=== PATIENT | female | born 1965 | race Caucasian/White ===

== ENCOUNTER 2016-08-19 12:54 | Emergency (ER) | payer BC ==
[2016-08-19 15:04] VITALS: BP 140/77
--- NOTE | 2016-08-19 17:56 | UC ---
Hip/Pelvis Pain - HPI Summary HPI Summary: The patient comes in today for: 1. Left hip pain: Onset: 6 weeks ago, but worse over the last 2 weeks. Palliative/provocative: Straightening up, Getting up after sitting, sitting and neck flexion, left hip rotation. Quality: sharp. Region: Left hip and radiates down the leg. Severity: 1/10 with standing and the left hip flexion: 8/10 Time: constant. Associated symptoms: Bowel/bladder incontinence: None. Fevers/infections: None. Cancers/unexpected weight loss: None. Weakness/numbness: None. Previous disease: None of the lower back/hip/ Treatment: No medications. She was told by her CAD DETAILER 3 weeks ago that the pain my be related to her hysterectomy and thought it would get better. * - History Of Current Complaint Chief Complaint: UCLowerExtremity Stated Complaint: HIP PAIN Time Seen by Provider: 08/19/16 17:47 Hx Obtained From: Patient Hx Last Menstrual Period: uterine ablasion - 11/2011 ?: No - Allergies/Home Medications Allergies/Adverse Reactions: Allergies Allergy/AdvReac Type Severity Reaction Status Date / Time Erythromycin Allergy Hives Verified 08/19/16 13:39 Codeine AdvReac headache, Verified 08/19/16 13:39 vomiting PMH/Surg Hx/FS Hx/Imm Hx Previously Healthy: No - Cervical radiculopathy, "Bladder problems." Endocrine History Of: Denies: Diabetes, Thyroid Disease, Hyperthyroidism, Hypothyroidism, Dyslipidemia Cardiovascular History Of: Denies: Cardiac Disorders, Hypertension, Pacemaker/ICD, Myocardial Infarction , Congestive Heart Failure, Atrial Fibrillation, Deep Vein Thrombosis, Bleeding Disorders Respiratory History Of: Reports: Asthma Denies: COPD, Bronchitis, Pneumonia, Pulmonary Embolism GI/ History Of: Denies: Gastroesophageal Reflux, Ulcer, Gastrointestinal Bleed, Gall Bladder Disease, Kidney Stones, Diverticulitis, Renal Disease, Urosepsis Neurological History Of: Denies: TIA, CVA, Dementia, Seizures, Migraine Psychological History Of: Denies: Anxiety, Depression, Bipolar Disorder, Schizophrenia, Post Traumatic Stress Disorder Cancer History Of: Denies: Lung Cancer, Colorectal Cancer, Breast Cancer, Prostate Cancer, Cervical Cancer Other History Of: Negative For: HIV, Hepatitis B, Hepatitis C, Anticoagulant Therapy - Surgical History Surgical History: Yes Surgery Procedure, Year, and Place: uterine ablasion 18 mo ago;growth removed from uterus 6 months before ablasion;tubal ligation; APPENDECTOMY; SINUS SURGERY - Family History Known Family History: Positive: Hypertension Negative: Cardiac Disease - Social History Occupation: Employed Full-time Alcohol Use: Occasionally Substance Use Type: None Smoking Status (MU): Light Every Day Tobacco Smoker Type: Cigarettes Amount Used/How Often: 1/2 ppd - Immunization History Most Recent Influenza Vaccination: 2010 Most Recent Tetanus Shot: up to date Most Recent Pneumonia Vaccination: never Review of Systems Constitutional: Negative Skin: Negative Eyes: Negative ENT: Negative Respiratory: Negative Cardiovascular: Negative Gastrointestinal: Negative Genitourinary: Negative Musculoskeletal: Arthralgia, Myalgia All Other Systems Reviewed And Are Negative: Yes Physical Exam Triage Information Reviewed: Yes Appearance: Well-Appearing, No Pain Distress - The patient was standing the whole history taking next to the examination table. She complained at that time of minimal pain. However, maneuvering to get on the examination table was more difficult due to pain., Well-Nourished Vital Signs: Initial Vital Signs Temp 98.7 F 08/19/16 13:34 Pulse 113 08/19/16 13:34 Resp 20 08/19/16 13:34 BP 155/102 08/19/16 13:34 Pulse Ox 97 08/19/16 13:34 Vital Signs Reviewed: Yes Eyes: Positive: Conjunctiva Clear. Negative: Discharge ENT: Positive: Hearing grossly normal. Negative: Pharyngeal erythema, Nasal congestion, Nasal drainage, TM bulging, TM dull, TM red, Tonsillar swelling, Tonsillar exudate Dental: Negative: Gross Decay/Caries @, Dental Fracture @ Neck: Positive: Supple, Nontender, No Lymphadenopathy. Negative: Nuchal Rigidity Respiratory: Positive: Lungs clear, No respiratory distress. Negative: Crackles , Wheezing Cardiovascular: Positive: RRR, No Murmur Abdomen Description: Positive: Nontender, No Organomegaly, Soft. Negative: Distended, Guarding Musculoskeletal: Positive: Strength Intact, No Edema, Other: - Back: The spine revealed no marked kyphoscoliosis. There was no tenderness to the lumbar paraspinous musculature bilaterally. There was no CVA tenderness bilaterally. There was pain in the Left hip when I palpated her Right gluteus melvi. There was no piriformis tenderness of either buttocks. She had no marked tenderness of the left greater trochanteric bursa or ilio-tibial band. There was no tenderness to the posterior left hip capsule or the superior hamstring musculature on the left. Internal rotation was not associated with pain, but external rotation was. No SLR bilaterally. She had patella DTR 2+/2 x 2. Neurological: Positive: Alert Psychological: Positive: Age Appropriate Behavior, Consolable Skin: Negative: rashes, breakdown Diagnostics - Radiology No standard instances Xray Interpretation: No Acute Changes Radiology Interpretation Completed By: Radiologist Hip Injury Course/Dx - Course Course Of Treatment: Patient was told of the unremarkable Left hip x-rays. She was told that I did not know for sure what was causing her discomfort and therefore recommended that she see a specialist (orthopedics). She agreed. She was told of her treatment options, and she did not want muscle relaxants as they make her muscles "jump all over." She did agree to taking another NSAID ( other than ibuprofen). - Differential Dx/Diagnosis Provider Diagnoses: Left hip pain, etiology undetermined. Discharge - Discharge Plan Condition: Stable Disposition: HOME Patient Education Materials: Hip Pain (ED) Referrals: Jose Reeves MD [Primary Care Provider] - 1 Week (Please see your primary care provider after several days to see how well you are doing. If you get worse, please be seen sooner.) Laurie Burgess MD [Medical Doctor] - As Soon As Possible (Please call Dr. Burgess's office as soon as you can for an appointment. If your hip pain gets worse, please go to the ER.)
--- NOTE | 2016-08-19 18:33 | RAD ---
HISTORY: Left hip pain COMPARISONS: None VIEWS: 3, Frontal view of the pelvis with frontal and frog-leg views of the left hip FINDINGS: BONE DENSITY: Normal. BONES: There is no displaced fracture. 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 ALIGNMENT: There is no dislocation. SOFT TISSUES: Unremarkable. OTHER FINDINGS: None. IMPRESSION: NO ACUTE OSSEOUS INJURY. IF SYMPTOMS PERSIST, RECOMMEND REPEAT IMAGING.
== END 2016-08-19 19:09 | disposition home or self-care (01) ==
LOC: UCEAST 12:54
DX: M25.552 Pain in left hip (principal); Z88.1 Allergy status to other antibiotic agents; Z88.5 Allergy status to narcotic agent; F17.210 Nicotine dependence, cigarettes, uncomplicated
CPT/HCPCS: 99212; G0463

== ENCOUNTER 2016-10-14 11:39 | Inpatient (IN) | payer BC ==
[2016-10-14] MEDS ORDERED: LORazepam INJ* 2 MG/ML 1 ML VIAL IV PUSH ONE (12:38)
[2016-10-14] MEDS ORDERED: HYDROmorphone* 1 MG/ML 1 ML SYR IV ONE ×2 (12:38→13:12)
[2016-10-14] MEDS ORDERED: NS 0.9% 1000 ML* 2,000 ML IV ONE (12:38)
[2016-10-14] MEDS ORDERED: Ketorolac INJ* 30 MG/ML 1 ML VIAL IV ONE (13:12)
[2016-10-14 13:25] LABS: Hematocrit 43 % (35-47); Hemoglobin 14.4 g/dl (12.0-16.0); Mean Corpuscular HGB Conc 34 g/dl (31-36); Mean Corpuscular Hemoglobin 31 pg (27-31); Mean Corpuscular Volume 92 fL (80-97); Mean Platelet Volume 9 um3 (7.4-10.4); Red Cell Distribution Width 14 % (10.5-15); White Blood Count 8.5 10^3/ul (3.5-10.8)
[2016-10-14 13:40] LABS: ALT 23 U/L (7-52); AST 18 U/L (13-39); Albumin 4.5 g/dL (3.2-5.2); Alkaline Phosphatase 55 U/L (34-104); Anion Gap 7 mmol/L (2-11); BUN/Creatinine Ratio 20.3 (8-20); Blood Urea Nitrogen 13 mg/dL (6-24); C Reactive Protein < 1.00 mg/L (< 5.00); CO2 Carbon Dioxide 23 mmol/L (22-32); Calcium 10.1 mg/dL (8.6-10.3); Chloride 108 mmol/L (101-111); EGFR African American 125.3 (>60); EGFR Non-African American 97.4 (>60); Globulin 2.7 g/dL (2-4); Glucose 91 mg/dL (70-100); Magnesium 1.9 mg/dL (1.9-2.7); Potassium 3.7 mmol/L (3.5-5.0); Sodium 138 mmol/L (133-145); Total Protein 7.2 g/dL (6.4-8.9)
--- NOTE | 2016-10-14 13:53 | ED ---
Geoff Menard Rebecca, scribed for Shelli Cain MD on 10/14/16 at 1215 . Back Pain - HPI Summary HPI Summary: Pt is a 51 y/o F who presents to ED c/o acute on chronic lumbar back pain. Pain began gradually 7 weeks ago and has been constant and worsening since onset, worsened 1 week ago. Pt reports "L2 is herniated to the right." Pain is in the lumbar back with radiation down the entire LLE. Pain is characterized as severe sharp and burning pain, ranked 10/10. Sx aggravated by movement and deep breaths , alleviated by nothing, unchanged by Ultram, Vicodin and Morphine. Additionally c/o decreased appetite, fever and chills. Prior similar episodes were unchanged by Dilaudid and Fentanyl IV. Pt is unsure of whether Benzodiazepine has been used to treat sx previously. Pt was scheduled for surgery to treat sx on October [address] Pascual, which her insurance company rejected on October 02, per pt. Reports Dr. Pascual's plan was then to treat her with physical therapy, which has also been denied by insurance. - History of Current Complaint Chief Complaint: EDBackInjuryPain Stated Complaint: PAIN BACK , AND LEG Time Seen by Provider: 10/14/16 12:14 Hx Obtained From: Patient Hx Last Menstrual Period: uterine ablasion - 11/2011 Onset/Duration: Gradual Onset, Lasting Weeks - 7 weeks, Still Present, Worse Since - 1 week ago Timing: Constant Back Pain Location: Is Discrete @ - Lumbar back, Radiates To - LLE Severity Initially: Severe Severity Currently: Severe Pain Intensity: 10 Pain Scale Used: 0-10 Numeric Character: Sharp, Burning Aggravating Symptom(s): Movement Alleviating Symptom(s): Nothing Associated Signs And Symptoms: Positive: Fever, Other - Chills, decreased appetite - Allergies/Home Medications Allergies/Adverse Reactions: Allergies Allergy/AdvReac Type Severity Reaction Status Date / Time Erythromycin Allergy Hives Verified 10/02/16 10:33 Codeine AdvReac Severe headache, Verified 10/02/16 10:33 vomiting Home Medications: Home Medications Cetirizine-Pseudoephedrine [Zyrtec-D Allergy/Congesti] 1 tab PO DAILY PRN [History Confirmed 10/14/16] Cyclobenzaprine TAB* [Flexeril 10 MG TAB*] 10 mg PO BEDTIME 10/14/16 [History Confirmed 10/14/16] Hydrocodone-Acetaminophen [Hydrocodone Bitartrate/AC] 1 tab PO Q6HR MDD 4 tabs 10/14/16 [History Confirmed 10/14/16] Morphine TAB (NF) 15 mg PO Q4HR MDD 90mg 10/14/16 [History Confirmed 10/14/16] Solifenacin(NF) [Vesicare(NF)] 5 mg PO DAILY 10/14/16 [History Confirmed ] PMH/Surg Hx/FS Hx/Imm Hx Endocrine/Hematology History: Denies: Hx Anticoagulant Therapy, Hx Diabetes, Hx Thyroid Disease Cardiovascular History: Denies: Hx Congestive Heart Failure, Hx Deep Vein Thrombosis, Hx Hypertension , Hx Myocardial Infarction, Hx Pacemaker/ICD Respiratory History: Reports: Hx Asthma Denies: Hx Chronic Obstructive Pulmonary Disease (COPD), Hx Lung Cancer, Hx Pneumonia, Hx Pulmonary Embolism GI History: Reports: Other GI Disorders - hx of diverticulitis Denies: Hx Gall Bladder Disease, Hx Gastrointestinal Bleed, Hx Ulcer, Hx Urosepsis History: Denies: Hx Dialysis, Hx Kidney Stones, Hx Renal Disease Musculoskeletal History: Reports: Hx Arthritis, Hx Back Problems Sensory History: Denies: Hx Hearing Aid Neurological History: Reports: Other Neuro Impairments/Disorders - States numb/ tingling right arm with weakness Denies: Hx Dementia, Hx Migraine, Hx Seizures, Hx Transient Ischemic Attacks (TIA) Psychiatric History: Denies: Hx Anxiety, Hx Depression, Hx Panic Disorder, Hx Schizophrenia, Hx Bipolar Disorder - Cancer History Hx Chemotherapy: No Hx Radiation Therapy: No - Surgical History Surgery Procedure, Year, and Place: uterine ablasion; growth removed from uterus 6 months before ablasion; tubal ligation 1985; APPENDECTOMY 2014; SINUS SURGERY 1995. HYSTERECTOMY May 2016 Infectious Disease History: Denies: Hx Clostridium Difficile, Hx Hepatitis, Hx Human Immunodeficiency Virus (HIV), Hx of Known/Suspected MRSA, Hx Shingles, Hx Tuberculosis, Traveled Outside the [place] in Last 30 Days - Family History Known Family History: Positive: Hypertension Negative: Cardiac Disease - Social History Lives: With Family Alcohol Use: Rare Substance Use Type: Reports: None Smoking Status (MU): Light Every Day Tobacco Smoker Type: Cigarettes Amount Used/How Often: 1/2 ppd Review of Systems Positive: Fever, Chills Positive: Other - Decreased appetite Positive: Arthralgia - Lumbar back pain with radiation to the LLE All Other Systems Reviewed And Are Negative: Yes Physical Exam - Summary Physical Exam Summary: General: Well appearing, no pain distress Skin: Warm, Skin Color Reflects Adequate Perfusion, Dry Eyes: EOMI, WILFRIDO ENT: Pharynx normal, TMs normal Neck: Supple, nontender Respiratory: CTA, breath sounds present, no rhonchi, no wheezes, no rales Cardiovascular: RRR, no murmur, no rub, no gallop Abdomen: Soft, nontender, Non-distended, no guarding, no rebound Bowel: Present Musculoskeletal: No edema, Tenderness from L3-S1, Normal bilateral hip flexion and great toe strength. Pain radiating down the left leg, but the leg is not tender Neuro: Sensory/motor intact, A&Ox3, CN intact 2-12 Psych: Affect/mood appropriate Triage Information Reviewed: Yes Vital Signs On Initial Exam: Initial Vitals Temp Pulse Resp BP Pulse Ox 98.4 F 80 22 118/69 98 10/14/16 11:50 10/14/16 11:50 10/14/16 11:50 10/14/16 11:50 10/14/16 11:50 Vital Signs Reviewed: Yes - [place] Coma Scale Coma Scale Total: 15 Diagnostics - Vital Signs Vital Signs Temp Pulse Resp BP Pulse Ox 10/14/16 11:50 98.4 F 80 22 118/69 98 - Laboratory Lab Results: Lab Results 10/14/16 10/14/16 Range/Units 13:10 13:10 WBC 8.5 (3.5-10.8) 10^3/ul RBC 4.60 (4.0-5.4) 10^6/ul Hgb 14.4 (12.0-16.0) g/dl Hct 43 (35-47) % MCV 92 (80-97) fL MCH 31 (27-31) pg MCHC 34 (31-36) g/dl RDW 14 (10.5-15) % Plt Count 200 (150-450) 10^3/ul MPV 9 (7.4-10.4) um3 Neut % (Auto) 59.1 (38-83) % Lymph % (Auto) 32.9 (25-47) % [place] % (Auto) 5.8 (1-9) % Eos % (Auto) 1.5 (0-6) % Baso % (Auto) 0.7 (0-2) % Absolute Neuts (auto) 5.0 (1.5-7.7) 10^3/ul Absolute Lymphs (auto) 2.8 (1.0-4.8) 10^3/ul Absolute Monos (auto) 0.5 (0-0.8) 10^3/ul Absolute Eos (auto) 0.1 (0-0.6) 10^3/ul Absolute Basos (auto) 0.1 (0-0.2) 10^3/ul Absolute Nucleated RBC 0 10^3/ul Nucleated RBC % 0 Sodium 138 (133-145) mmol/L Potassium 3.7 (3.5-5.0) mmol/L Chloride 108 (101-111) mmol/L Carbon Dioxide 23 (22-32) mmol/L Anion Gap 7 (2-11) mmol/L BUN 13 (6-24) mg/dL Creatinine 0.64 (0.51-0.95) mg/dL Est GFR ( Amer) 125.3 (>60) Est GFR (Non-Af Amer) 97.4 (>60) BUN/Creatinine Ratio 20.3 H (8-20) Glucose 91 (70-100) mg/dL Calcium 10.1 (8.6-10.3) mg/dL Magnesium 1.9 (1.9-2.7) mg/dL Total Bilirubin 0.40 (0.2-1.0) mg/dL AST 18 (13-39) U/L ALT 23 (7-52) U/L Alkaline Phosphatase 55 (34-104) U/L C-Reactive Protein < 1.00 (< 5.00) mg/L Total Protein 7.2 (6.4-8.9) g/dL Albumin 4.5 (3.2-5.2) g/dL Globulin 2.7 (2-4) g/dL Albumin/Globulin Ratio 1.7 (1-3) Result Diagrams: 10/14/16 13:10 10/14/16 13:10 Lab Statement: Any lab studies that have been ordered have been reviewed, and results considered in the medical decision making process. Back Pain Course/Dx - Course Course Of Treatment: 51 yo female with intractable sciatic pain x 7 weeks. She has disc disease l3-l4,l4-l5 and was scheduled for surgery with Dr. Pascual, earlier this month, but her insurance denied the claim. She was scheduled today to get a 2nd opinion but was unable to attend the appt due to pain. She has stopped taking oral narcotics because they do not work, her pain was managed in the ED with 2mg of IV dilaudid and 2mg of IV ativan. Pt's labs are normal, no wbc and no increased crp. Of note, social work has been consulted and the case was discussed with Dr. Hoang for admission for her intractable pain - Diagnoses Provider Diagnoses: Intractable low back pain - Provider Notifications Discussed Care of Patient With: Dr. Hoang, hospitalist, who accepts pt for admission. Time Discussed With Above Provider: 13:37 Discharge - Discharge Plan Condition: Good Disposition: ADMITTED TO [facility] Referrals: Jose Reeves MD [Primary Care Provider] - The documentation as recorded by the Geoff cho Rebecca accurately reflects the service I personally performed and the decisions made by me, Shelli Cain MD.
[2016-10-14] MEDS ORDERED: HYDROmorphone* 1 MG/ML 1 ML SYR IV SLOW PU PRN (14:30)
[2016-10-14] MEDS ORDERED: Albuterol HFA INHALER* 8 gm MDI INH PRN (14:32)
[2016-10-14] MEDS ORDERED: Enoxaparin(*) 40 MG/0.4 ML SYR SUBCUT SCH (15:00)
[2016-10-14] MEDS: Gabapentin CAP(*) 300 MG PO SCH ×2 (15:31→20:27)
[2016-10-14] MEDS: Cyclobenzaprine TAB* 10 MG PO PRN ×2 (15:32→20:27)
[2016-10-14] MEDS: Acetaminophen TAB* 325 MG PO SCH ×2 (15:33→20:27)
[2016-10-14] MEDS: NS 0.9% 1000 ML* 1,000 ML IV SCH (15:36)
[2016-10-14] MEDS ORDERED: HYDROmorphone* 1 MG/ML 1 ML SYR ONE (15:44)
[2016-10-14] MEDS: Lidocaine PATCH 5%* 1 PATCH TRANSDERM SCH (15:46)
[2016-10-14] MEDS: HYDROmorphone* 1 MG/ML 1 ML SYR IV SLOW PU PRN ×4 (15:46→23:32)
[2016-10-14] MEDS ORDERED: Artificial Tear OPHTH.OINT* 3.5 GM BOTH EYES PRN (16:42)
[2016-10-14] MEDS: Diazepam TAB(*) 5 MG PO PRN (16:53)
[2016-10-14] MEDS: Ketorolac INJ* 30 MG/ML 1 ML VIAL IV PUSH PRN ×2 (17:40→23:56)
[2016-10-14] MEDS: Mometasone/Formoter 200/5 MDI INH SCH (19:48)
[2016-10-14] MEDS: Montelukast Sodium TAB* 10 MG PO SCH (20:27)
[2016-10-14] MEDS: Lidocaine Patch REMOVE* 1 NOTE MISC PATCH OFF SCH (20:32)
--- NOTE | 2016-10-14 21:45 | HP ---
HISTORY AND PHYSICAL: DATE OF ADMISSION: 10/14/16 - ROOM #412 PRIMARY CARE PHYSICIAN: Dr. Reeves. CHIEF COMPLAINT: Back pain. HISTORY OF PRESENT ILLNESS: Ms. Callaway is a 51-year-old female with past medical history of asthma, diverticulosis and progressive lumbar radiculopathy who presents to the hospital with worsening pain. The patient states that she cannot recall any inciting event for the pain. She thinks it may be started around June, but was very mild at that time. However, over the last 7 weeks or so, she states the pain has been constant and this has been getting worse and it starts in the left lower back and radiates down the left leg to the heel. She also reports some tingling in her left foot for about 1 week. She denies any incontinence. The patient had an MRI in August 2016 that showed an L5-S1 disk protrusion which cause compression of the left S1 nerve as well as multiple levels of foraminal narrowing and degenerative disk disease, also an L2-L3 mild broad based disk bulge with lateral disk protrusion. She was seen by Pain Management, underwent epidural spinal injection on 09/13/16 which she reports did not help the pain at all. She subsequently underwent a CT myelogram at the request of Dr. Pascual, which showed degenerative disk disease. No myelographic block, mild narrowing in the central canal at L3-L4, left-sided disk protrusion at L2-L3 and multilevel narrowing. The patient was scheduled by Dr. Pascual for surgery. On 10/03/16, the patient had preop testing done and apparently the afternoon prior to the surgery, her insurance contacted her and said that they will not cover the surgery as they felt that her imaging did not correlate with her symptoms and recommended the second opinion which she was supposed to go today; however, could not make it because of her increasing pain. She states she has gotten to the point now where she is crawling on her hands and knees at home from room to room. Any movement at all causes significant worsening of pain. She has had decreased p.o. intake. She reports subjective chills and sweats. Denies any shortness of breath, abdominal pain. She had some constipation from morphine, but she stopped taking it and this resolved. She states that she has been on a number of narcotics, steroids and anti- inflammatories none of which have helped the pain at all. She is here today with her daughter and her and they are frustrated and are unsure of what to do from here. PAST MEDICAL HISTORY: Significant for asthma, diverticulosis and low back pain. PAST SURGICAL HISTORY: Hysterectomy, tubal ligation, appendectomy, sinus surgery, and uterine polyp removal. HOME MEDICATIONS: 1. Symbicort 1 puff inhaled 2 times daily. 2. VESIcare 5 mg by mouth daily although the patient states that she has not taken that at the moment. 3. Albuterol 2 puffs inhaled every 4 hours as needed for shortness of breath or wheezing. 4. Singulair 10 mg by mouth at bedtime. 5. Lyrica 100 mg by mouth 3 times daily. 6. Zyrtec 1 tablet by mouth daily as needed for allergies. The patient has prescriptions for morphine, Flexeril and hydrocodone that she states she has not been taking as this has not been helpful. ALLERGIES: ERYTHROMYCIN and CODEINE. SOCIAL HISTORY: The patient is a half pack per day smoker for 10 plus years. She just smoked a bit more. She will have an occasional beer. Denies any illicit drug use. REVIEW OF SYSTEMS: A 12-point review of systems is negative except for that noted is in the HPI. PHYSICAL EXAMINATION GENERAL: The patient is a middle aged female, lying in the bed on her side, appears to be in pain. VITAL SIGNS: Temperature 98.4, heart rate of 80, respiratory rate of 22, O2 saturation 98% on room air, blood pressure 119/69. HEENT: Head: Normocephalic, atraumatic. Eyes: Pupils equal, round, and reactive to light and accommodation. Anicteric sclerae. ENT: No cervical adenopathy. Moist mucous membranes. Clear oropharynx. LUNGS: Clear to auscultation bilaterally. No wheezes, rales or rhonchi. CARDIOVASCULAR: Regular rate and rhythm. S1, S2. No murmurs, gallops or rubs. ABDOMEN: Soft, nontender, nondistended. Bowel sounds are positive. EXTREMITIES: No cyanosis, clubbing, or edema. NEUROLOGIC: The patient is alert and oriented x3. Difficult to do significant exam due the patient's severe pain. She reports some decreased sensation on the left foot. Left low back is tender to palpation. LABS AND DIAGNOSTICS: White blood cell count of 8.5, hematocrit of 43, platelets of 200. Sodium of 138, potassium 3.7, chloride of 108, CO2 23, BUN 13 , creatinine 0.64, glucose of 91. LFTs are within normal limits. CRP less than 1. ASSESSMENT AND PLAN: Progressive lumbar radiculopathy in a 51-year-old female with past medical history of asthma, diverticulosis. 1. Progressive lumbar radiculopathy. The patient states she got small improvement in her pain with the medications in the ED. We will continue her on Toradol and p.r.n. Dilaudid. Additionally, we will write for a Lidoderm patch, around the clock gabapentin, around the clock Tylenol, and p.r.n. Valium and Flexeril. I am not sure if this intractable pain will change any issues with the insurance company. Social Work consult has been placed. I have a page out to Dr. Pascual to see if he has any other ideas or if he feels this may change the insurance's decision to cover the surgery. We will give the patient some maintenance fluid. 2. Asthma. Continue home albuterol, Symbicort and Singulair. 3. DVT prophylaxis. Lovenox subcu. 4. Code status. The patient is a full code. TIME SPENT: Total time spent on this admission was 40 minutes with over half the time spent [id number] with the patient in counseling and coordinating care. CC: Dr. Reeves; Dr. Pascual* [id number]/[facility] #: [id number] MTDD
[2016-10-15] MEDS: Diazepam TAB(*) 5 MG PO PRN ×2 (01:06→10:18)
[2016-10-15] MEDS: NS 0.9% 1000 ML* 1,000 ML IV SCH (01:07)
[2016-10-15] MEDS: HYDROmorphone* 1 MG/ML 1 ML SYR IV SLOW PU PRN ×3 (04:51→19:13)
[2016-10-15] MEDS: Cyclobenzaprine TAB* 10 MG PO PRN ×3 (04:52→19:12)
[2016-10-15] MEDS: Ketorolac INJ* 30 MG/ML 1 ML VIAL IV PUSH PRN ×2 (05:55→22:23)
[2016-10-15] MEDS: Mometasone/Formoter 200/5 MDI INH SCH ×2 (08:21→19:50)
[2016-10-15] MEDS: Senna TAB PO SCH (08:38)
[2016-10-15] MEDS: Gabapentin CAP(*) 300 MG PO SCH ×3 (08:38→20:51)
[2016-10-15] MEDS: Acetaminophen TAB* 325 MG PO SCH ×3 (08:38→20:51)
[2016-10-15] MEDS: Docusate CAP* 100 MG PO SCH ×2 (08:38→20:51)
[2016-10-15] MEDS: oxyCODONE TAB* 5 MG TAB PO PRN (08:39)
[2016-10-15] MEDS ORDERED: Nicotine Inhaler* 10 MG AMP INH PRN (09:50)
[2016-10-15] MEDS ORDERED: Mouth Piece, Nicotine* 1 EACH CARTRIDGE INH ONE (10:00)
--- NOTE | 2016-10-15 10:13 | CONSULT ---
Consult Consult: Neurosurgery consult Date of consult: 10/15/26 Reason for consult: Left lumbar radiculopathy HPI: This is a 51 year old female with past medical history significant for asthma, diverticulosis and left lumbar radiculopathy who presented to the [facility] by ambulance yesterday with complaint of worsening left lower extremity pain. She is a current patient at [facility] and has been recently seen in office. She presented to our office on 09/10/16 with approximately 10 weeks history of left lower extremity pain worsening in the previous 2-3 weeks. MRI on 08/29/16 showed disc bulge at L5-S1 which was consistent with her symptoms of LLE pain from the hip to the heel. She was referred for lumbar epidural steroid injection which she received on 09/13/16. She did not experience any relief of symptoms with the injection and presented again to the office on 09/18/16 with persistent left lumbar radiculopathy. Symptoms seemed to be out of proportion to MRI findings of L5-S1 disc bulge and it was therefore recommended that additional imaging with CT myelogram be obtained. On 09/30/16 she followed up in office to discuss results of CT and treatment options. CT/myelo showed a far lateral disc displacement at L2-3. Treatment with lumbar discectomy L2-3 left was recommended and scheduled. However, her insurance denied the surgery due to discrepancy between the patient 's symptoms and requested surgical level. Appeal was also denied and surgery continued to be denied after physician to physician review. Insurance required a trial of physical therapy; she went to PT and was unable to participate in any exercises secondary to pain. Insurance then requested a second neurosurgical opinion. She was scheduled to see Dr. Whitley yesterday but was unable to get dressed and transported to the appointment secondary to severe LLE pain. Her daughter then called 911 and she was brought to the [facility] for evaluation. This morning she complains of severe, constant, shooting pain that begins in the left side of the low back, travels to the hip, down the posterolateral thigh , lower leg and into the heel. The pain is associated with muscle cramping in the same distribution. She states that any movement exacerbates the pain, even breathing deeply or sniffling her nose. She has been sleeping on the couch for the past several weeks and is only able to lay on her right side with knees bent and padding between her knees. She is unable to ambulate and reports crawling on her hands and knees to the bathroom at home. She has otherwise been transported to appointments by wheelchair or stretcher. She is extremely frustrated with the denial of her treatment. She denies numbness, tingling, weakness and pain in the right lower extremity. She does report that her leg muscles are weakening, she has lost weight and has decreased appetite throughout the course of this condition. Treatments have included several narcotic pain medications, anti-inflammatory medication, oral steroids, muscle relaxant medication, LESI L5-S1 and physical therapy. No treatments have improved the patient's symptoms and symptoms have continued to worsen throughout the course of treatments. She has not been taking pain medications because they are not effective. Past medical history: 1. Asthma 2. Diverticulosis 3. Left lumbar radiculopathy 4. Migraine 5. Arthritis Past surgical history: 1. Hysterectomy 2. Tubal ligation 3. Appendectomy 4. Uterine fibroids 5. Sinus surgery 6. Polyp resection Allergies: 1. Erythromycin 2. Codeine Home medications: 1. Budesonide-Formoterol Fumarate [Symbicort 160-4.5 Mcg/Act] 1 puff INH BID 04/07 [History Confirmed 10/14/16] 2. Pregabalin CAP(*) [Lyrica CAP(*)] 100 mg PO TID 05/05/13 [History Confirmed 10/14/16] 3. Montelukast Sodium TAB* [Singulair TAB*] 10 mg PO BEDTIME 09/13/16 [History Confirmed 10/14/16] 4. Albuterol HFA INHALER* [Ventolin HFA Inhaler*] 2 puff INH Q4H PRN 10/02/16 [ History Confirmed 10/14/16] 5. Cetirizine-Pseudoephedrine [Zyrtec-D Allergy/Congesti] 1 tab PO DAILY PRN [History Confirmed 10/14/16] 6. Cyclobenzaprine TAB* [Flexeril 10 MG TAB*] 10 mg PO BEDTIME 10/14/16 [ History Confirmed 10/14/16] 7. Hydrocodone-Acetaminophen [Hydrocodone Bitartrate/AC] 1 tab PO Q6HR MDD 4 tabs 10/14/16 [History Confirmed 10/14/16] 8. Morphine TAB (NF) 15 mg PO Q4HR MDD 90mg 10/14/16 [History Confirmed 10/14/16 ] 9. Solifenacin(NF) [Vesicare(NF)] 5 mg PO DAILY 10/14/16 [History Confirmed ] Social history: The patient lives at home with her . She has smoked 1/2 ppd for over 10 years. Occasional alcohol consumption. ROS: Full ROS was completed; pertinent findings stated in HPI, all others negative. Physical exam: Vital Signs: Temp Pulse Resp BP Pulse Ox 98.6 F 70 16 120/67 93 10/15/16 07:40 10/15/16 07:40 10/15/16 10:20 10/15/16 07:40 10/15/16 07:40 General: Alert and oriented, laying in bed on right side. Crying during our discussion of treatments and the current situation with her insurance. HEENT: Head is normocephalic and atraumatic. PERRLA, EOMI. Gross hearing intact. Moist mucus membranes. Neck: Supple, symmetric and nontender. CV: Radial pulses 2+ and equal. Pedal pulses palpable. Lungs: Breathing is nonlabored and clear. Neuro: Speech is clear and coherent. CN II-XII intact. Strength testing and palpation of lower extremities elicits pain. Strength in bilateral lower extremities intact. Sensation intact throughout. SLR left positive. Unable to assess gait secondary to pain. Extremities: Limited active ROM of bilateral lower extremities secondary to pain. Imagin. MRI of the lumbar spine on 08/29/16 shows disc bulge at L5-S1 left. 2. CT/myelo on 09/30/16 shows L2-3 far lateral left disc displacement. Assessment: This is a 51 year old female with persistent LLE radiculopathy despite treatment with multiple medications, lumbar steroid injection L5-S1 and physical therapy. Lumbar discectomy L2-3 left surgery has been denied by insurance. She was unable to go to her second opinion appointment secondary to pain and therefore presented to the [facility]. Plan: 1. Continue pain management. 2. Dr. Saucedo consulted for pain management options. 3. Appreciate counseling case manager/social work assistance with insurance aspects of this case.
[2016-10-15] MEDS: methylPREDNISolone SOD 40 MG* 1 ML VIAL IV SCH ×2 (10:19→17:20)
--- NOTE | 2016-10-15 14:55 | PN ---
Subjective Date of Service: 10/15/16 Interval History: pt c/o extreme pain in left buttock radiating down the back of her left leg, worse with knee extension. No numbness, no incontinence, no motor weakness reported. she was prescribed Morphine IR 15 mg 120 tabs on 09/16/16 but sopped taking it a weeks ago since "it did not help". Objective Active Medications: Acetaminophen (Tylenol Tab*) 975 mg PO TID [facility] Last Admin: 10/15/16 13:53 Dose: 975 mg Albuterol (Ventolin Hfa Inhaler*) 2 puff INH Q4H PRN PRN Reason: SOB/WHEEZING Artificial Tears (Lacrilube Oint*) 1 applic BOTH EYES Q4H PRN PRN Reason: DRY EYE Last Admin: 10/14/16 16:53 Dose: 1 applic Cyclobenzaprine HCl (Flexeril Tab*) 10 mg PO TID PRN PRN Reason: Back spasms Last Admin: 10/15/16 12:48 Dose: 10 mg Diazepam (Valium Tab(*)) 5 mg PO Q8H PRN PRN Reason: Back pain/spasms Last Admin: 10/15/16 10:18 Dose: 5 mg Docusate Sodium (Colace Cap*) 100 mg PO BID [facility] Last Admin: 10/15/16 08:38 Dose: 100 mg Gabapentin (Neurontin Cap(*)) 300 mg PO TID [facility] Last Admin: 10/15/16 13:53 Dose: 300 mg Hydromorphone HCl (Dilaudid Iv*) 1 mg IV SLOW PU Q6H PRN PRN Reason: PAIN Last Admin: 10/15/16 12:48 Dose: 1 mg Ketorolac Tromethamine (Toradol Inj*) 30 mg IV PUSH Q6H PRN PRN Reason: PAIN Last Admin: 10/15/16 05:55 Dose: 30 mg Lidocaine (Lidoderm 5% Patch*) 1 patch TRANSDERM .ON 0900 OFF AT 2100 [facility] Last Admin: 10/14/16 15:46 Dose: 1 patch Methylprednisolone Sodium Succinate (Solu-Medrol 40 Mg) 40 mg IV Q8H [facility] Last Admin: 10/15/16 10:19 Dose: 40 mg Mometasone Furoate/Formoterol Fumar (Dulera 200/5 Mdi*) 1 puff INH BID [facility] PRN Reason: Protocol Last Admin: 10/15/16 08:21 Dose: 1 puff Montelukast Sodium (Singulair Tab*) 10 mg PO BEDTIME [facility] Last Admin: 10/14/16 20:27 Dose: 10 mg Nicotine (Nicotine Inhaler*) 10 mg INH Q2H PRN PRN Reason: CRAVING Oxycodone HCl (Roxycodone Tab*) 10 mg PO Q4H PRN PRN Reason: PAIN Last Admin: 10/15/16 08:39 Dose: 10 mg Pharmacy Profile Note (Lidocaine Patch Remove*) 1 note PATCH OFF 2100 [facility] Last Admin: 10/14/16 20:32 Dose: 1 note Senna (Senokot Tab*) 1 tab PO DAILY [facility] Last Admin: 10/15/16 08:38 Dose: 1 tab Vital Signs 10/14/16 10/14/16 10/14/16 15:31 15:32 15:46 Temperature Pulse Rate Respiratory 22 22 18 Rate Blood Pressure (mmHg) O2 Sat by Pulse Oximetry 10/14/16 10/14/16 10/14/16 16:46 16:53 17:40 Temperature Pulse Rate Respiratory 16 16 18 Rate Blood Pressure (mmHg) O2 Sat by Pulse Oximetry 10/14/16 10/14/16 10/14/16 18:40 18:41 19:32 Temperature 98.3 F Pulse Rate 74 Respiratory 16 16 16 Rate Blood Pressure 123/67 (mmHg) O2 Sat by Pulse 100 Oximetry 10/14/16 10/14/16 10/14/16 20:27 20:28 21:28 Temperature Pulse Rate Respiratory 17 17 16 Rate Blood Pressure (mmHg) O2 Sat by Pulse Oximetry 10/14/16 10/14/16 10/15/16 22:27 23:32 00:32 Temperature 98.2 F Pulse Rate 62 Respiratory 16 16 16 Rate Blood Pressure 106/44 (mmHg) O2 Sat by Pulse 98 Oximetry 10/15/16 10/15/16 10/15/16 01:06 03:06 04:47 Temperature 98.2 F Pulse Rate 71 Respiratory 16 16 16 Rate Blood Pressure 115/81 (mmHg) O2 Sat by Pulse 100 Oximetry 10/15/16 10/15/16 10/15/16 04:51 04:52 05:51 Temperature Pulse Rate Respiratory 17 17 16 Rate Blood Pressure (mmHg) O2 Sat by Pulse Oximetry 10/15/16 10/15/16 10/15/16 07:40 08:38 08:39 Temperature 98.6 F Pulse Rate 70 Respiratory 16 16 16 Rate Blood Pressure 120/67 (mmHg) O2 Sat by Pulse 93 Oximetry 10/15/16 10/15/16 10/15/16 10:18 10:20 11:40 Temperature 98.7 F Pulse Rate 73 Respiratory 16 16 16 Rate Blood Pressure 121/72 (mmHg) O2 Sat by Pulse 97 Oximetry 10/15/16 10/15/16 10/15/16 12:48 13:48 13:53 Temperature Pulse Rate Respiratory 16 16 16 Rate Blood Pressure (mmHg) O2 Sat by Pulse Oximetry Oxygen Devices in Use Now: None Appearance: 51 yo F in nAd, aAOx3 Eyes: No Scleral Icterus, PERRLA Ears/Nose/Mouth/Throat: NL Teeth, Lips, Gums, Mucous Membranes Moist Neck: NL Appearance and Movements; NL JVP, Trachea Midline Respiratory: Symmetrical Chest Expansion and Respiratory Effort, Clear to Auscultation Cardiovascular: NL Sounds; No Murmurs; No JVD, RRR Abdominal: NL Sounds; No Tenderness; No Distention, No Hepatosplenomegaly Lymphatic: No Cervical Adenopathy Extremities: No Edema, No Clubbing, Cyanosis Skin: No Rash or Ulcers, No Nodules or Sclerosis, - - extremely sensitive to touvh in left buttock, pain radiating doen the left leg is worse with movement Neurological: Alert and Oriented x 3, NL Muscle Strength and Tone, - Result Diagrams: 10/14/16 13:10 10/14/16 13:10 Additional Lab and Data: Lab Results 10/14/16 10/14/16 Range/Units 13:10 13:10 WBC 8.5 (3.5-10.8) 10^3/ul RBC 4.60 (4.0-5.4) 10^6/ul Hgb 14.4 (12.0-16.0) g/dl Hct 43 (35-47) % MCV 92 (80-97) fL MCH 31 (27-31) pg MCHC 34 (31-36) g/dl RDW 14 (10.5-15) % Plt Count 200 (150-450) 10^3/ul MPV 9 (7.4-10.4) um3 Neut % (Auto) 59.1 (38-83) % Lymph % (Auto) 32.9 (25-47) % [place] % (Auto) 5.8 (1-9) % Eos % (Auto) 1.5 (0-6) % Baso % (Auto) 0.7 (0-2) % Absolute Neuts (auto) 5.0 (1.5-7.7) 10^3/ul Absolute Lymphs (auto) 2.8 (1.0-4.8) 10^3/ul Absolute Monos (auto) 0.5 (0-0.8) 10^3/ul Absolute Eos (auto) 0.1 (0-0.6) 10^3/ul Absolute Basos (auto) 0.1 (0-0.2) 10^3/ul Absolute Nucleated RBC 0 10^3/ul Nucleated RBC % 0 Sodium 138 (133-145) mmol/L Potassium 3.7 (3.5-5.0) mmol/L Chloride 108 (101-111) mmol/L Carbon Dioxide 23 (22-32) mmol/L Anion Gap 7 (2-11) mmol/L BUN 13 (6-24) mg/dL Creatinine 0.64 (0.51-0.95) mg/dL Est GFR ( Amer) 125.3 (>60) Est GFR (Non-Af Amer) 97.4 (>60) BUN/Creatinine Ratio 20.3 H (8-20) Glucose 91 (70-100) mg/dL Calcium 10.1 (8.6-10.3) mg/dL Magnesium 1.9 (1.9-2.7) mg/dL Total Bilirubin 0.40 (0.2-1.0) mg/dL AST 18 (13-39) U/L ALT 23 (7-52) U/L Alkaline Phosphatase 55 (34-104) U/L C-Reactive Protein < 1.00 (< 5.00) mg/L Total Protein 7.2 (6.4-8.9) g/dL Albumin 4.5 (3.2-5.2) g/dL Globulin 2.7 (2-4) g/dL Albumin/Globulin Ratio 1.7 (1-3) Assess/Plan/Problems-Billing Assessment: 51 yo F s/p recent hysterectomy at [facility] in 05/2016, with h/o asthma, smoking and back pain that started in 06/1016 and got worse in the past one week. She had an epidural at the end of August 2016 with no relief in pain - Patient Problems (1) Lumbar radicular pain Comment: appreciate Dr. Pascual's consult Dr. Saucedo consulted for pain management and possible injection IV Solu Medrol started Cont Oxycodone /Flexweril/Dilaudid prn (2) Smoking Comment: approx 4 min spent on counseling on smoking cessation today nicotine inhaler ordered (3) DVT prophylaxis Comment: loveox held in aticipation of procedure Status and Disposition: OBV
[2016-10-15] MEDS: Montelukast Sodium TAB* 10 MG PO SCH (20:51)
[2016-10-15] MEDS: Lidocaine Patch REMOVE* 1 NOTE MISC PATCH OFF SCH (20:52)
[2016-10-16] MEDS: HYDROmorphone* 1 MG/ML 1 ML SYR IV SLOW PU PRN ×4 (01:19→20:46)
[2016-10-16] MEDS: methylPREDNISolone SOD 40 MG* 1 ML VIAL IV SCH ×2 (01:19→11:09)
[2016-10-16] MEDS: Ketorolac INJ* 30 MG/ML 1 ML VIAL IV PUSH PRN ×3 (04:25→17:22)
[2016-10-16] MEDS: Diazepam TAB(*) 5 MG PO PRN (04:31)
[2016-10-16] MEDS ORDERED: Iohexol 300* (CONTRAST) 10 ML SDV IV SCH (06:56)
--- NOTE | 2016-10-16 07:32 | PM ---
PAIN TREATMENT CENTER NOTE: DATE OF VISIT: 10/15/16 CHIEF COMPLAINT: Left buttock and leg pain. HISTORY: The patient is a 51-year-old female, who was admitted to the hospital yesterday with intra ctable radiating left leg pain. The patient had been seen in the pain clinic by Dr. Hall on and underwent an L5-S1 epidural steroid injection under fluoroscopic guidance. The patient state s that the epidural steroid injection performed on 09/13/16 did not provide any significant relief. She has been in constant pain unable to do her normal activities, walk, or ambulate without discomfo rt since the block. The pain has not changed before or after the epidural steroid injection. She s tates the pain is just intense she cannot sit on a commode, it radiates from her buttock, posterior thigh into her calf, and down to her foot. She denies any significant numbness or tingling. It is mainly just pain. PHYSICAL EXAMINATION: She has a blood pressure of 114/66, her pulse is 87, respirations are 16. It is a difficult examination as she is lying in the right lateral decubitus position with the pillow between her legs. She has pain with examining her motor strength, but grossly appears intact to mot or strength in both lower extremities. She is intact to light touch sensation with some perceived d ecreased sensation by the patient in the left lower extremity. DIAGNOSTIC STUDIES: Radiologic review shows a lumbar MRI from August of 2014 showing an L5-S1 left d isk protrusion causing compression of left S1 nerve root in the lateral recess. The myelogram from yesterday was reviewed with Dr. Llanos and I still see what appears to be L5-S1 disk protrusion to t he left looking like it is contacting left S1 nerve root. Further review of the scan shows an L2-3 broad- based disk bulge with a left foraminal disk protrusion with mild left neural foraminal narrow ing. ASSESSMENT AND PLAN: She is suffering from an S1 radiculopathy. I talked to the patient today abou t treatment options, I can offer her another epidural steroid injection; the first injection did not help. If she would like to try another one, I will be happy to. The patient states she is going t o need IV sedation as she has had so much discomfort. She is unable to lie prone on the table for t he procedure, so I said I would speak with Dr. Pascual this afternoon, discuss the plan, and perform the block tomorrow if she would like with IV sedation. She can continue on her pain medications. She can be given DVT prophylaxis tonight, but should not be given any tomorrow morning in lieu of po tential injection. [id number]/[facility] #: [id number]
[2016-10-16] MEDS: Mometasone/Formoter 200/5 MDI INH SCH ×2 (08:34→19:06)
--- NOTE | 2016-10-16 08:42 | PN ---
Progress Note - Progress Note SOAP: Subjective: [51 year old female with left lumbar radiculopathy for the past 2 months. Denies new numbness, tingling and weakness. Pain remains in left buttock, posterior thigh and down lower leg to heel. Worse with pressure on the low back , buttock and posterior thigh. She was seen by Dr. Saucedo yesterday for pain management evaluation and mentioned that the pain in her left leg is significantly increased with laying prone. She underwent hysterectomy (sounds laparoscopic) in [place] in May. About one month post-op she was experiencing more abdominal pain than expected and underwent CT of the abdomen at [place]. Per the patient, there was nothing concerning on the CT. She returned to work and about 2 weeks later began to slowly develop this LLE pain. After working an additional 3 weeks, she presented to her PCP after LLE pain became severe and was taken out of work and referred to neurosurgery. ] Objective: [ Vital Signs: Temp Pulse Resp BP Pulse Ox 98.6 F 72 16 126/72 97 10/16/16 04:17 10/16/16 04:17 10/16/16 07:39 10/16/16 04:17 10/16/16 04:17 General: Alert and oriented. Significant discomfort laying in bed. Neuro: Motor and sensory intact to RLE and LLE. Abdomen: Soft, nontender and nondistended. ] Assessment: [LLE radiculopathy. Stable. ] Plan: [1. CT chest/abdomen/pelvis today. 2. Continue pain management.]
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
[2016-10-16] MEDS: Docusate CAP* 100 MG PO SCH ×2 (13:11→20:45)
[2016-10-16] MEDS: Gabapentin CAP(*) 300 MG PO SCH ×3 (13:11→20:45)
[2016-10-16] MEDS: Acetaminophen TAB* 325 MG PO SCH ×3 (13:11→20:45)
[2016-10-16] MEDS: Lidocaine PATCH 5%* 1 PATCH TRANSDERM SCH (13:16)
[2016-10-16] MEDS: D5NS 0.9% 1000 ML BAG* 1,000 ML IV SCH (13:24)
[2016-10-16] MEDS ORDERED: Midazolam* 1 MG/ML 5 ML VIAL (5 MG) ONE (14:20)
[2016-10-16] MEDS ORDERED: methylPREDNISolone ACETATE 80* 80 MG/ML 1 ML VIAL ONE (14:20)
[2016-10-16] MEDS ORDERED: Lidocaine 1% INJ* 10 MG/ML 30 ML SDV ONE (14:20)
[2016-10-16] MEDS ORDERED: fentaNYL* 50 MCG/ML 2 ML VIAL (100 MCG VIAL) ONE ×2 (14:20→15:40)
--- NOTE | 2016-10-16 15:26 | PN ---
Subjective Date of Service: 10/16/16 Interval History: pt's status is unchanged: still c/o pain in left leg. Had been able to sit up and use bedside commode with one person assist Objective Active Medications: Acetaminophen (Tylenol Tab*) 975 mg PO TID [facility] Last Admin: 10/16/16 13:11 Dose: Not Given Albuterol (Ventolin Hfa Inhaler*) 2 puff INH Q4H PRN PRN Reason: SOB/WHEEZING Artificial Tears (Lacrilube Oint*) 1 applic BOTH EYES Q4H PRN PRN Reason: DRY EYE Last Admin: 10/14/16 16:53 Dose: 1 applic Cyclobenzaprine HCl (Flexeril Tab*) 10 mg PO TID PRN PRN Reason: Back spasms Last Admin: 10/15/16 19:12 Dose: 10 mg Diazepam (Valium Tab(*)) 5 mg PO Q8H PRN PRN Reason: Back pain/spasms Last Admin: 10/16/16 04:31 Dose: 5 mg Docusate Sodium (Colace Cap*) 100 mg PO BID [facility] Last Admin: 10/16/16 13:11 Dose: Not Given Gabapentin (Neurontin Cap(*)) 300 mg PO TID [facility] Last Admin: 10/16/16 13:11 Dose: Not Given Hydromorphone HCl (Dilaudid Iv*) 1 mg IV SLOW PU Q6H PRN PRN Reason: PAIN Last Admin: 10/16/16 14:01 Dose: 1 mg Dextrose/Sodium Chloride (D5ns 0.9% 1000 Ml Bag*) 1,000 mls @ 75 mls/hr IV PER RATE [facility] Last Admin: 10/16/16 13:24 Dose: 75 mls/hr Iohexol (Omnipaque 300* (Contrast)) 77 ml IV ONCE [facility] Stop: 10/18/16 23:59 Last Admin: 10/16/16 11:41 Dose: 77 ml Ketorolac Tromethamine (Toradol Inj*) 30 mg IV PUSH Q6H PRN PRN Reason: PAIN Last Admin: 10/16/16 10:43 Dose: 30 mg Lidocaine (Lidoderm 5% Patch*) 1 patch TRANSDERM .ON 0900 OFF AT 2100 [facility] Last Admin: 10/16/16 13:16 Dose: 1 patch Methylprednisolone Sodium Succinate (Solu-Medrol 40 Mg) 40 mg IV Q8H [facility] Last Admin: 10/16/16 11:09 Dose: 40 mg Mometasone Furoate/Formoterol Fumar (Dulera 200/5 Mdi*) 1 puff INH BID [place] PRN Reason: Protocol Last Admin: 10/16/16 08:34 Dose: 1 puff Montelukast Sodium (Singulair Tab*) 10 mg PO BEDTIME [facility] Last Admin: 10/15/16 20:51 Dose: 10 mg Nicotine (Nicotine Inhaler*) 10 mg INH Q2H PRN PRN Reason: CRAVING Oxycodone HCl (Roxycodone Tab*) 10 mg PO Q4H PRN PRN Reason: PAIN Last Admin: 10/15/16 08:39 Dose: 10 mg Pharmacy Profile Note (Lidocaine Patch Remove*) 1 note PATCH OFF 2100 [facility] Last Admin: 10/15/16 20:52 Dose: Not Given Senna (Senokot Tab*) 1 tab PO DAILY [facility] Last Admin: 10/15/16 08:38 Dose: 1 tab Vital Signs 10/15/16 10/15/16 10/15/16 15:50 19:12 19:13 Temperature Pulse Rate Respiratory 16 17 17 Rate Blood Pressure (mmHg) O2 Sat by Pulse Oximetry 10/15/16 10/15/16 10/15/16 19:37 20:13 20:51 Temperature 98.3 F Pulse Rate 77 Respiratory 18 18 18 Rate Blood Pressure 122/69 (mmHg) O2 Sat by Pulse 96 Oximetry 10/15/16 10/15/16 10/15/16 21:12 22:51 23:15 Temperature 97.5 F Pulse Rate 62 Respiratory 18 17 16 Rate Blood Pressure 124/71 (mmHg) O2 Sat by Pulse 98 Oximetry 10/16/16 10/16/16 10/16/16 01:19 02:19 04:17 Temperature 98.6 F Pulse Rate 72 Respiratory 16 18 16 Rate Blood Pressure 126/72 (mmHg) O2 Sat by Pulse 97 Oximetry 10/16/16 10/16/16 10/16/16 04:31 06:31 07:39 Temperature Pulse Rate Respiratory 16 16 16 Rate Blood Pressure (mmHg) O2 Sat by Pulse Oximetry 10/16/16 10/16/16 10/16/16 07:49 08:39 10:27 Temperature 98.3 F Pulse Rate 72 73 Respiratory 17 16 Rate Blood Pressure 150/72 122/71 (mmHg) O2 Sat by Pulse 99 Oximetry 10/16/16 10/16/16 11:12 14:01 Temperature 98.2 F Pulse Rate 72 Respiratory 16 16 Rate Blood Pressure 120/68 (mmHg) O2 Sat by Pulse 97 Oximetry Oxygen Devices in Use Now: None Appearance: 51 yo f in nAd, aAOx3 Eyes: No Scleral Icterus, PERRLA Ears/Nose/Mouth/Throat: NL Teeth, Lips, Gums, Mucous Membranes Moist Neck: NL Appearance and Movements; NL JVP, Trachea Midline Respiratory: Symmetrical Chest Expansion and Respiratory Effort, Clear to Auscultation Cardiovascular: NL Sounds; No Murmurs; No JVD, RRR Abdominal: NL Sounds; No Tenderness; No Distention, No Hepatosplenomegaly Lymphatic: No Cervical Adenopathy Extremities: No Edema, No Clubbing, Cyanosis Skin: No Rash or Ulcers, No Nodules or Sclerosis Neurological: Alert and Oriented x 3, NL Muscle Strength and Tone, - - unable to extend left leg due to pain Result Diagrams: 10/14/16 13:10 10/14/16 13:10 Additional Lab and Data: Lab Results 10/14/16 10/14/16 Range/Units 13:10 13:10 WBC 8.5 (3.5-10.8) 10^3/ul RBC 4.60 (4.0-5.4) 10^6/ul Hgb 14.4 (12.0-16.0) g/dl Hct 43 (35-47) % MCV 92 (80-97) fL MCH 31 (27-31) pg MCHC 34 (31-36) g/dl RDW 14 (10.5-15) % Plt Count 200 (150-450) 10^3/ul MPV 9 (7.4-10.4) um3 Neut % (Auto) 59.1 (38-83) % Lymph % (Auto) 32.9 (25-47) % [place] % (Auto) 5.8 (1-9) % Eos % (Auto) 1.5 (0-6) % Baso % (Auto) 0.7 (0-2) % Absolute Neuts (auto) 5.0 (1.5-7.7) 10^3/ul Absolute Lymphs (auto) 2.8 (1.0-4.8) 10^3/ul Absolute Monos (auto) 0.5 (0-0.8) 10^3/ul Absolute Eos (auto) 0.1 (0-0.6) 10^3/ul Absolute Basos (auto) 0.1 (0-0.2) 10^3/ul Absolute Nucleated RBC 0 10^3/ul Nucleated RBC % 0 Sodium 138 (133-145) mmol/L Potassium 3.7 (3.5-5.0) mmol/L Chloride 108 (101-111) mmol/L Carbon Dioxide 23 (22-32) mmol/L Anion Gap 7 (2-11) mmol/L BUN 13 (6-24) mg/dL Creatinine 0.64 (0.51-0.95) mg/dL Est GFR ( Amer) 125.3 (>60) Est GFR (Non-Af Amer) 97.4 (>60) BUN/Creatinine Ratio 20.3 H (8-20) Glucose 91 (70-100) mg/dL Calcium 10.1 (8.6-10.3) mg/dL Magnesium 1.9 (1.9-2.7) mg/dL Total Bilirubin 0.40 (0.2-1.0) mg/dL AST 18 (13-39) U/L ALT 23 (7-52) U/L Alkaline Phosphatase 55 (34-104) U/L C-Reactive Protein < 1.00 (< 5.00) mg/L Total Protein 7.2 (6.4-8.9) g/dL Albumin 4.5 (3.2-5.2) g/dL Globulin 2.7 (2-4) g/dL Albumin/Globulin Ratio 1.7 (1-3) Assess/Plan/Problems-Billing Assessment: 51 yo F s/p recent hysterectomy at [facility] in 05/2016, with h/o asthma, smoking and back pain that started in 06/1016 and got worse in the past one week. She had an epidural at the end of August 2016 with no relief in pain - Patient Problems (1) Lumbar radicular pain Comment: appreciate Dr. Pascual's consult Dr. Saucedo consulted for pain management and possible injection for today IV Solu Medrol started on 10/15/16, no change, will d/c Cont Oxycodone/Flexeril/Dilaudid prn CT abd pelvis grossly unremarkable on 10/16/16 (2) Smoking Comment: approx 4 min spent on counseling on smoking cessation on 10/15/16 nicotine inhaler ordered (3) DVT prophylaxis Comment: loveox held in aticipation of procedure Status and Disposition: OBV
[2016-10-16] MEDS: Senna TAB PO SCH (17:31)
--- NOTE | 2016-10-16 20:33 | RAD ---
CPT II Codes: 6045F INDICATION: Back pain TECHNIQUE: Intraoperative fluoroscopy was provided during back pain injection FINDINGS: A single spot film depicts a left of midline needle at the L4/L5 level. Incidentally noted are partially visualized air-filled loops of colon overlying the right hemiabdomen. Fluoroscopy time: 7 seconds IMPRESSION: As above.
[2016-10-16] MEDS: Montelukast Sodium TAB* 10 MG PO SCH (20:45)
[2016-10-16] MEDS: Lidocaine Patch REMOVE* 1 NOTE MISC PATCH OFF SCH (20:51)
[2016-10-17] MEDS: Ketorolac INJ* 30 MG/ML 1 ML VIAL IV PUSH PRN (00:04)
[2016-10-17] MEDS: Cyclobenzaprine TAB* 10 MG PO PRN (00:10)
[2016-10-17] MEDS: D5NS 0.9% 1000 ML BAG* 1,000 ML IV SCH (01:35)
[2016-10-17] MEDS: HYDROmorphone* 1 MG/ML 1 ML SYR IV SLOW PU PRN ×2 (03:00→10:38)
[2016-10-17] MEDS: Diazepam TAB(*) 5 MG PO PRN (07:32)
--- NOTE | 2016-10-17 08:30 | PM ---
[facility] NOTE: DATE OF VISIT: 10/16/16 - inpatient room #412-02 CHIEF COMPLAINT: Radiating left leg pain. HISTORY: The patient is a 51-year-old female, who is an inpatient in the hospital for severe intractable radiating left leg pain. The patient was seen last night in consultation and I felt she was suffering from an L5-S1 disk herniation with S1 radiculopathy. I had a chance to discuss the case with Dr. Pascual last evening and he obtained a CT of the abdomen and pelvis today to rule out any compressive lesions and that study was negative. He called me today requesting an epidural steroid injection at the L5-S1 interspace on the left side to see if we can improve her symptoms. I had a chance to discuss the procedure with the patient, the risks, benefits, and alternatives to therapy, and informed consent was obtained. The patient will require IV sedation for the procedure. PROCEDURE NOTE: The patient was in her hospital bed, where monitors were placed and I proceeded to premedicate her with 5 mg of midazolam followed by 2 cc of fentanyl in divided doses. The patient was then turned in the prone position and her back prepped and draped in the usual sterile fashion. The patient was given an additional 5 mg of midazolam and 2 cc of fentanyl because of her radiating left leg pain. I used fluoroscopy to identify the L5-S1 interspace. I anesthetized the skin and subcutaneous tissue over the area with 3 cc of 1% lidocaine. Using an 18- gauge Tuohy needle, I directed under fluoroscopic guidance to the L5-S1 interspace. I identified the epidural space using loss of resistance to air technique. There was no CSF, blood, or paresthesias noted. There was negative aspiration. I proceeded to inject 3 cc of 0.5% lidocaine with 80 mg of Depo-Medrol after frequent negative aspirations. The patient tolerated the procedure well, was brought back to the floor in stable condition. CC: Dr. Pascual* [id number]/[facility] #: [id number] [facility]ENTERShirin
[2016-10-17] MEDS: Mometasone/Formoter 200/5 MDI INH SCH (08:42)
[2016-10-17] MEDS: Gabapentin CAP(*) 300 MG PO SCH ×2 (09:12→13:51)
[2016-10-17] MEDS: Acetaminophen TAB* 325 MG PO SCH ×2 (09:13→13:51)
[2016-10-17] MEDS: Docusate CAP* 100 MG PO SCH (09:13)
[2016-10-17] MEDS: Senna TAB PO SCH (09:13)
--- NOTE | 2016-10-17 09:32 | PN ---
Progress Note - Progress Note SOAP: Subjective: [LLE pain persists from left buttock to heel. L5-S1 LESI yesterday with no improvement in symptoms. Denies RLE numbness, tingling and weakness. No headache. She expresses concern about options for treatment. Pain medications slightly improving pain while inpatient.] Objective: [ Vital Signs: Temp Pulse Resp BP Pulse Ox 98.3 F 62 16 141/79 98 10/17/16 03:08 10/17/16 03:08 10/17/16 09:12 10/17/16 03:08 10/17/16 03:08 General: Alert and oriented. Tearful again this morning, laying on right side. Neuro: Motor and sensory intact. Pain with movement of LLE and palpation of left posterior thigh. No pain with palpation of left lower leg.] Assessment: [Left sided lumbar radiculopathy. Symptoms persist despite treatment with pain medications and steroid injection L5-S1 yesterday. Neurologically stable. CT abdomen/pelvis 10/16/16 negative.] Plan: [1. Continue pain management. 2. Recommend transfer to outside facility for further treatment options. ]
[2016-10-17 11:46] VITALS: BP 146/98
[2016-10-17] MEDS: oxyCODONE TAB* 5 MG TAB PO PRN (12:40)
--- NOTE | 2016-10-18 02:21 | DS ---
DISCHARGE SUMMARY: DATE OF ADMISSION: 10/14/16 DATE OF DISCHARGE: 10/17/16 PRIMARY CARE PROVIDER: Dr. Jose Reeves. DISCHARGE DIAGNOSES: 1. Severe lower back pain radiating to left lower extremity due to left lumbar radiculopathy. 2. History of lumbar steroid injection at L5 and S1 prior to the hospital stay and another steroid injection to the same level performed by Dr. Saucedo during the hospital stay. SECONDARY DIAGNOSES: 1. Asthma, history of smoking. 2. Status post hysterectomy in May 2016. 3. History of appendectomy. 4. History of sinus surgery. 5. History of diverticulosis. MEDICATIONS AT DISCHARGE: Include: 1. Acetaminophen 975 mg 3 times a day for pain. 2. Albuterol inhaler 2 puffs every 4 hours p.r.n. 3. Symbicort 160/4.5 one inhalation b.i.d. 4. Zyrtec 1 tablet daily p.r.n. 5. Flexeril 10 mg at bedtime. 6. Diazepam 5 mg every 8 hours p.r.n. The patient was prescribed a total of 15 tablets. 7. Colace 100 mg b.i.d. 8. Singulair 10 mg at bedtime. 9. Lyrica 100 mg 3 times a day. 10. Senna 1 tablet daily. 11. VESIcare 5 mg daily. 12. Oxycodone 10 mg p.o. every 4 hours p.r.n. The patient was prescribed a total of 5-day supply. I-STOP was checked. The patient last received a prescription for 16-day supply of morphine sulfate IR at [address] Reeves on 09/16/16. CONSULTATIONS DURING THE HOSPITAL STAY: Included: 1. Dr. Pascual from Neurosurgery. 2. Dr. Saucedo from Pain Management and Anesthesia. PROCEDURES PERFORMED DURING THE HOSPITAL STAY: Included: 1. An injection at L4-L5 level with epidural steroid injection by Dr. Saucedo performed on 10/16/16. 2. Abdomen and pelvic CT obtained on 10/16/16, the patient is status post hysterectomy and recent back pain, impression "no acute CT findings. No marked or inflammatory change. Colonic redundancy. Scattered diverticula of the sigmoid colon. No CT evidence of acute diverticulitis. Hysterectomy and appendectomy." HOSPITALIZATION COURSE: Mckay Callaway is a 51-year-old female who has had problems with lower back pain and left lumbar radiculopathy for the past couple of months. She was seen by Dr. Pascual as outpatient and was originally scheduled for L2-L3 left lumbar diskectomy. She apparently was planned to undergo the procedure on 10/03/16, but her insurance denied the surgery and recommended second evaluation. The patient was already scheduled with Dr. Whitley from [facility] from Neurosurgery, but unfortunately, she had had continuous back pain and was unable to make it to the appointment. She came into the hospital on 10/15/16 complaining of severe back pain that was basically relieved only by IV Dilaudid. The patient was treated with Lidoderm patch that did not work. She continued to be treated with oxycodone on a p.r.n. basis as well as Dilaudid on a p.r.n. basis. She also was placed on Valium. Dr. Pascual saw the patient in consultation, recommended evaluation for epidural steroid injection, which was performed by Dr. Saucedo. Actually, although patient herself did not appear to see any results from the epidural spinal injection, I noted that the patient was able to extend her leg on the left, which she was not able to do prior to the procedure. She was able to also independently sit up and stand and ambulate, although minimally so with a roller walker to the bedside commode by the time of discharge. She was evaluated by Physical Therapy. She was recommended either staying in the hospital if she is unable to continue to function this way at home and do short term rehabilitation. She was also recommended possibility of transferring to a tertiary care center for evaluation by another neurosurgeon, who may able to offer patient surgery and a second opinion insurance request to perform surgery. At this point, the patient was not interested in continuing to try to get the surgery performed by Dr. Pascual. Dr. Pascual also thought it will be best for the patient to have a second opinion and be evaluated by another neurosurgeon. Nevertheless, by the time of discharge, the patient was not interested in being transferred to another facility for neurosurgical evaluation. She requested to be discharged home. She apparently has a walker and a bedside commode at home already. She has planned to see Dr. Whitley within the next week and a half. She was prescribed oxycodone and Valium as above mentioned. She was also given stool softeners due to the ongoing narcotic use. PHYSICAL EXAMINATION AT THE TIME OF DISCHARGE: Blood pressure of 146/98, heart rate of 89 and regular, respiratory rate 16, oxygen saturation 98% on room air, temperature 98.2. General: The patient is a very pleasant 51-year-old female, who is in no acute distress. The patient is alert, awake, and oriented x3. HEENT: Head atraumatic, normocephalic. Eyes: Pupils equal, reactive to light and accommodation. Oropharynx clear. Mucosa moist. Neck: Supple, no JVD, no bruits bilaterally. Cardiovascular: Regular rate and rhythm. No murmur. Respiratory: Clear to auscultation bilaterally. Abdomen: Soft, nontender. Bowel sounds present in all quadrants. Extremities: There is no edema, pulses +2 bilaterally. No clubbing and no cyanosis. Neuro Evaluation: Speech clear. Cranial nerves II through XII are grossly intact. Motor strength is 5/5 bilaterally. Sensation is grossly intact. Please note that the patient has severe pain on palpation of the left lower lumbar and buttock area. The pain is worse with left knee extension, but she is able to do that. There is no focal weakness noted and there is no sensation deficit on neuro evaluation. The patient is also recommended to follow up with her primary care provider after her current hospital stay and that is Dr. Jose Reeves. Please note that this is a short summary of the patient's hospital stay. Please refer to further medical records for details. TIME SPENT: Approximately 35 minutes were spent on the patient's discharge. CC: Dr. Reeves, Dr. Pascual; Ej Beltran, Neurosurgery* [id number]/[facility] #: [id number] [facility]
== END 2016-10-17 14:45 | disposition home or self-care (01) | DRG 347 ==
LOC: ED 11:39 → MED 13:44 → OBSVTOIN 10-16 15:00
PROVIDERS: ADMIT Hospitalist; ATTEND Internal Medicine
PROC: 3E0R33Z Introduction of Anti-inflammatory into Spinal Canal, Percutaneous Approach (ICD-10-PCS; principal; 2016-10-16)
DX: M54.16 Radiculopathy, lumbar region (principal); F17.210 Nicotine dependence, cigarettes, uncomplicated; M54.18 Radiculopathy, sacral and sacrococcygeal region; G89.29 Other chronic pain; J45.909 Unspecified asthma, uncomplicated; M19.90 Unspecified osteoarthritis, unspecified site; R40.2412 Glasgow coma scale score 13-15, at arrival to emergency department; M51.36 Other intervertebral disc degeneration, lumbar region; G43.909 Migraine, unspecified, not intractable, without status migrainosus; K57.30 Diverticulosis of large intestine without perforation or abscess without bleeding; Z88.5 Allergy status to narcotic agent; Z88.1 Allergy status to other antibiotic agents; Z98.51 Tubal ligation status; Z90.710 Acquired absence of both cervix and uterus; Z82.49 Family history of ischemic heart disease and other diseases of the circulatory system; Z79.51 Long term (current) use of inhaled steroids
CPT/HCPCS: 36415; 72100; 74177; 77003; 80053; 83735; 85025; 86140; 94640; A9270-GY; G0378; G8978-GP-CN; G8979-GP-CI; J1040; J1170; J1650; J1885; J2001; J2060; J2250; J2920; J3010; Q9967

== ENCOUNTER 2022-06-11 09:11 | Observation (INO) ==
[2022-06-11] MEDS ORDERED: Ondansetron 4 mg VIAL 2 MG/ML 2 ml VIAL IV ONE (09:40)
[2022-06-11] MEDS ORDERED: HYDROmorphone 1 MG/1 ML SYRINGE IV SLOW PU ONE (14:13)
[2022-06-11] MEDS ORDERED: Magnesium Hydroxide LIQ 30 ML UDC PO PRN (16:43)
[2022-06-11] MEDS ORDERED: Senna TAB 8.6 mg TAB PO PRN (16:44)
[2022-06-11] MEDS ORDERED: Albuterol HFA INHALER 8 gm MDI INH PRN (16:45)
[2022-06-11] MEDS: Morphine 2 MG/ML SYRINGE IV PRN ×2 (17:30→21:55)
[2022-06-11 17:49] LABS: ABS Eosinophils 0.2 10^3/ul (0-0.6); ABS Lymphocytes 1.7 10^3/ul (1.0-4.8); ABS Monocytes 0.5 10^3/ul (0-0.8); ABS Neutrophils 6.2 10^3/ul (1.5-7.7); Eosinophil % 2.7 %; Hematocrit 39 % (35-47); Lymphocyte % 19.3 %; Mean Corpuscular HGB Conc 33 g/dL (31-36); Mean Corpuscular Hemoglobin 32 pg (27-31); Mean Corpuscular Volume 96 fL (80-97); Mean Platelet Volume 8.5 fL (7.4-10.4); Platelet Count 179 10^3/uL (150-450); Red Blood Count 4.08 10^6 /uL (3.70-4.87); Red Cell Distribution Width 14 % (10-15); White Blood Count 8.6 10^3/uL (3.5-10.8)
[2022-06-11 18:28] LABS: Albumin 4.2 g/dL (3.2-5.2); Albumin/Globulin Ratio 2.1 (1-3); Calcium 9.6 mg/dL (8.6-10.3); Potassium 4.1 mmol/L (3.5-5.0); Total Bilirubin 0.6 mg/dL (0.2-1.0); Total Protein 6.2 g/dL (6.4-8.9); eGFR CKD-EPI 85.9 (>60)
[2022-06-11 18:53] LABS: Vitamin D Total 25(OH) 20.7 ng/mL (20-50)
[2022-06-11] MEDS ORDERED: Enoxaparin 40 MG/0.4 ML SYR SUBCUT SCH (21:00)
[2022-06-12] MEDS: Morphine 2 MG/ML SYRINGE IV PRN ×3 (01:39→10:48)
[2022-06-12] MEDS ORDERED: CMCS: Solifenacin 5 mg TAB (NF) PO SCH (09:00)
[2022-06-12] MEDS ORDERED: CMCS:Calcitonin NASAL(NF) 200 UNITS/SPRAY NASAL.SPR ALT NARE SCH (13:00)
[2022-06-12 15:49] VITALS: BP 138/75
== END 2022-06-12 15:49 | disposition home or self-care (01) ==
LOC: ED 09:11 → EDHOLD 09:11
PROVIDERS: ADMIT Internal Medicine; ATTEND Internal Medicine